=== PATIENT | male | born 1950 | race Caucasian/White ===

== ENCOUNTER 2022-05-05 19:57 | Emergency (ER) | payer OTHER, MEDICARE ==
[~2022-05-05 19:57] MED LIST: Iopamidol 370 76% 100 ML VIAL ONE
[2022-05-05] MEDS ORDERED: Ondansetron PF 4 MG/2 ML Vial ONE (20:38)
[2022-05-05 20:47] LABS: #Basophils 0.1 thou/uL (0.0-0.2); #Lymphocytes 1.1 thou/uL (1.20-3.40); #Monocytes 0.3 thou/uL (0.11-0.59); #Neutrophils 4.5 thou/uL (1.40-6.50); %Basophils 1.2 % (0.0-1.0); %Lymphocytes 18.1 % (21.0-51.0); %Neutrophils 75.8 % (42.0-75.0); Hemoglobin 18.2 g/dL (14.0-18.0); Mean Corpuscular Hemoglobin 35.4 pg (27.0-31.0); Mean Platelet Volume 7.7 fL (7.4-10.4); Platelet Count 221 thou/uL (130-400); RBC Distribution Width 11.1 % (11.5-14.5); Red Blood Cell (RBC) Count 5.16 mill/uL (4.70-6.10); White Blood Cell (WBC) Count 5.9 thou/uL (4.8-10.8)
[2022-05-05 20:53] LABS: ALT (SGPT) 28 U/L (8-55); AST (SGOT) 35 U/L (5-34); Albumin 4.1 g/dL (3.4-4.8); Alkaline Phosphatase 70 U/L (40-110); Anion Gap 19 mmol/L (10-20); BUN (Urea Nitrogen) 8 mg/dL (8.4-25.7); Bilirubin, Total 0.9 mg/dL (0.2-1.2); Calc. Creatinine Clearance 0 mL/min (70-130); Calcium 9.1 mg/dL (7.8-10.44); Carbon Dioxide 20 mmol/L (23-31); Chloride 96 mmol/L (98-107); Estimated GFR 73; Globulin 3.6 g/dL (2.4-3.5); Glucose 164 mg/dL (83-110); Lipase 22 U/L (8-78); Potassium 3.3 mmol/L (3.5-5.1); Protein, Total 7.7 g/dL (5.8-8.1); Sodium 132 mmol/L (136-145)
[2022-05-05] MEDS ORDERED: Famotidine/PF 20 mg/2ml Vial ONE (21:24)
[2022-05-05] MEDS ORDERED: Thiamine HCl 200 MG/2 ML VIAL ONE (21:24)
[2022-05-05] MEDS ORDERED: Glycopyrrolate 0.4 MG/ 2 ML VIAL ONE (21:24)
[2022-05-05] MEDS ORDERED: 1/2 NS w/KCL 20 mEq 1,000 ML IV SCH (21:45)
[2022-05-05] MEDS ORDERED: Lorazepam 0.5 MG TAB ONE (22:43)
[2022-05-06] MEDS ORDERED: Lorazepam 2 MG/ML VIAL ONE (01:26)
[2022-05-06] MEDS ORDERED: Pantoprazole 40 MG VIAL ONE (01:27)
[2022-05-06 01:34] LABS: Bilirubin Negative (Negative); Blood, Urine Moderate (Negative); Clarity Clear (Clear); Glucose, Urine (Dipstick) Negative (Negative); Ketone, Urine Negative (Negative); Leukocyte Negative (Negative); Nitrite Negative (Negative); Protein, Urine (Dipstick) Trace mg/dL (Neg-Trace); Urobilinogen 0.2 mg/dL (Less than 2)
[2022-05-06 01:35] LABS: Specific Gravity, Urine Less/Equal 1.005 (1.005-1.030)
[2022-05-06 01:37] LABS: Prothrombin Time 13.5 sec (12.0-14.7)
[2022-05-06 01:38] LABS: PTT 35.3 sec (22.9-36.1)
[2022-05-06 01:45] LABS: Bacteria/HPF None Seen HPF (None Seen); RBC/HPF 0-3 HPF (0-3); Squamous Epithelial 0-3 HPF (0-3); WBC/HPF None Seen HPF (0-3)
[2022-05-06 02:35] LABS: Hemoglobin 16.4 g/dL (14.0-18.0); Mean Corpuscular HGB CONC 35.6 g/dL (32.0-36.0); Mean Corpuscular Hemoglobin 35.5 pg (27.0-31.0); Mean Corpuscular Volume 99.8 fl (78.0-98.0); Mean Platelet Volume 7.8 fL (7.4-10.4); Platelet Count 166 thou/uL (130-400); Red Blood Cell (RBC) Count 4.63 mill/uL (4.70-6.10); White Blood Cell (WBC) Count 3.8 thou/uL (4.8-10.8)
[2022-05-06 02:45] LABS: Band 22 % (5-11); Lymphocytes 35 % (21-51); MDiff Complete? YES; Macrocytosis SLIGHT = 6-15 cells (100X) (0-5/hpf); Monocytes 3 % (0-10); Neutrophil 40 % (42-75)
[2022-05-06 02:49] LABS: Magnesium 1.4 mg/dL (1.6-2.6)
[2022-05-06 03:03] LABS: Macrocytosis SLIGHT = 6-15 cells (100X) (0-5/hpf)
== END 2022-05-06 02:46 | disposition short-term general hospital (02) ==
LOC: BURERS 19:57
DX: K92.2 Gastrointestinal hemorrhage, unspecified (principal); F10.10 Alcohol abuse, uncomplicated; E87.6 Hypokalemia; F17.210 Nicotine dependence, cigarettes, uncomplicated
CPT/HCPCS: 36415; 71045; 74177; 80053; 81003; 81015; 82274; 83690; 83735; 83880; 84484; 85025; 85610; 85730; 93005; 94760; 96365; 96366; 96375; C9113; J2060; J2405; J3411; J3480; Q9967; S0028